=== PATIENT | male | born 1970 | race Hispanic/Latino ===

== ENCOUNTER 2018-08-15 11:55 | Inpatient (IN) | payer SELFPAY ==
[~2018-08-15 11:55] MED LIST: Gadobenate Dimeglumine 529 MG/1 ML (20ML VIAL) ONE
--- NOTE | 2018-08-15 12:52 | CT ---
Head CT without contrast 08/15/2018: COMPARISON: none HISTORY: Altered mental status TECHNIQUE: Axial CT imaging at 5 mm intervals from vertex through skull base without contrast FINDINGS: There is a focal area of conspicuous hypodensity within the superior aspect of the bilatera l cerebellar hemispheres, left more conspicuous than right, measuring in the 2.0 and 1.4 cm range respectively. No midline shift or mass effect. No ventricular enlargement. No intracranial hemorrhage noted. Imaged paranasal sinuses/mastoid air cells appear well-aerated. No displaced calvarial fracture. IMPRESSION: Areas of hypodensity noted within the superior aspect of the cerebellar hemispheres, left greater than right. Findings could be on the basis of nonspecific edema which could be related to infarction or vasogenic edema. Recommend contrast enhanced brain MRI. Dr. Almanzar made aware at 12:48 PM 08/15/2018
[2018-08-15 13:06] LABS: #Lymphocytes 0.7 thou/uL (1.20-3.40); #Monocytes 0.3 thou/uL (0.11-0.59); #Neutrophils 4.1 thou/uL (1.40-6.50); %Basophils 0.5 % (0.0-1.0); %Eosinophils 0.6 % (0.0-10.0); %Lymphocytes 12.7 % (21.0-51.0); %Monocytes 6.3 % (0.0-10.0); %Neutrophils 79.9 % (42.0-75.0); Hemoglobin 10.1 g/dL (14.0-18.0); Mean Corpuscular HGB CONC 35.3 g/dL (32.0-36.0); Mean Corpuscular Hemoglobin 30.8 pg (27.0-31.0); Mean Corpuscular Volume 87.1 fL (78.0-98.0); RBC Distribution Width 14.6 % (11.5-14.5); Red Blood Cell (RBC) Count 3.29 mill/uL (4.70-6.10); White Blood Cell (WBC) Count 5.1 thou/uL (4.8-10.8)
[2018-08-15 13:20] LABS: ALT (SGPT) 57 U/L (8-55); AST (SGOT) 71 U/L (5-34); Albumin 2.4 g/dL (3.5-5.0); Alkaline Phosphatase 514 U/L (40-150); Anion Gap 10 mmol/L (10-20); Anisocytosis SLIGHT = 6-15 cells (100X) (0-5/hpf); BUN (Urea Nitrogen) 14 mg/dL (8.9-20.6); Bilirubin, Total 2.4 mg/dL (0.2-1.2); CK (CPK) 121 U/L (30-200); Calc. Creatinine Clearance 0 mL/min (70-130); Calcium 8.1 mg/dL (7.8-10.44); Carbon Dioxide 22 mmol/L (22-29); Chloride 105 mmol/L (98-107); Estimated GFR-MDRD Greater than 90; Globulin 4.1 g/dL (2.4-3.5); Glucose 251 mg/dL (70-105); MDiff Complete? YES; Mean Platelet Volume 7.6 fL (7.4-10.4); Platelet Count 43 thou/uL (130-400); Platelet Morphology Comment Appears Decreased; Polychromasia SLIGHT = 2-3 cells (100X) (0-2/hpf); Potassium 4.1 mmol/L (3.5-5.1); Protein, Total 6.5 g/dL (6.0-8.3); Sodium 133 mmol/L (136-145)
--- NOTE | 2018-08-15 15:06 | MRI ---
MRI BRAIN WITH AND WITHOUT IV CONTRAST: HISTORY: Altered mental status and headache. FINDINGS: Correlation is made with a CT brain of earlier today. No infarct, hemorrhage, mass, midline shift, or abnormal extraaxial fluid collection is seen. The ve ntricular size is normal and the basilar cisterns patent. No restricted diffusion is identified. No significant signal abnormalities are noted on the highly sensitive FLAIR images. No blood products are seen on the gradient echo sequences. No tonsillar herniation is seen. No abnormal postcontrast enhancement is noted. The visualized paranasal sinuses and mastoid air cells are well aerated. IMPRESSION: Normal exam. This study was interpreted in consultation with Dr. Eliezer Angel (neuroradiologist) who concurs. POS: [facility]
[2018-08-15 17:26] VITALS: BMI 20.7
[2018-08-15] MEDS ORDERED: Dextrose 5% in Water 1,000 ML IV PRN (17:30)
[2018-08-15] MEDS ORDERED: Dextrose 50% Abboject 50 ML SYRINGE SLOW IVP PRN (17:30)
[2018-08-15] MEDS: Sodium Chloride 0.45% 1,000 ML IV SCH (17:36)
[2018-08-15] MEDS: HumaLOG 300 UNITS/3 ML VIAL SC PRN (17:59)
--- NOTE | 2018-08-15 18:16 | HP ---
CHIEF COMPLAINT: Altered mental status. HISTORY OF PRESENT ILLNESS: Apparently, the patient was driving and pulled over and brought to the emergency room because of altered mental status and A and O x1. His mentioned something to EMS about cirrhosis and fluid on the brain. The CT and the MRI of the brain done, which both were negative, although the CT was questionable, that is why MRI was done and it was read by neuroradiologist as negative, and also his ammonia level was elevated at 80 and decision was made about admission for further management of this problem. PAST MEDICAL HISTORY: Positive for, 1. Diabetes mellitus. 2. Liver cirrhosis. 3. Gastroesophageal reflux disease. 4. Hypertension. PAST SURGICAL HISTORY: None. SOCIAL HISTORY: This is taken from the patient and from the documentation we have from the emergency room. No alcohol intake. He denied any drugs. No cigarette smoking. FAMILY HISTORY, REVIEW OF SYSTEMS, AND MEDICATION LIST: Unobtainable secondary to the patient's altered mental status. There is no any family member present in the emergency room. ALLERGIES: AGAIN, UNKNOWN. PHYSICAL EXAMINATION: VITAL SIGNS: Blood pressure is 159/98, pulse is 97, respirations 16, temperature 98.7, O2 saturation is 100% on room air. GENERAL: He does not have any pain. He is calm and quiet. HEENT: His head is atraumatic and normocephalic. Eyes, pupils are quite dilated approximately 4 mm, similar bilaterally, responding to light. Sclerae nonicteric. Oral mucosa is moist. NECK: Supple. LUNGS: Clear. HEART: S1 and S2 normal. No S3. No S4. No any murmur. ABDOMEN: Somewhat distended. Bowel sounds are present. No organomegaly. Liver is not palpable. EXTREMITIES: No clubbing, cyanosis, or edema. NEUROLOGICAL: He is alert and oriented x1. There are no any motor deficits. He moves his all four extremities. He follows my commands. SKIN: No rash or erythema. LABORATORY DATA: Labs showed white count of 5.1, hemoglobin 10.1, hematocrit 28.6, platelet count is 43,000. Sodium 133, potassium 4.1, chloride 105, CO2 of 22, BUN 14, creatinine 0.83, glucose 251, total bilirubin 2.4, AST 71, ALT 57, alkaline phosphatase 514, ammonia 80, albumin 2.4, and globulin 4.1. CT of the brain was read as possible area of hypodensity within the superior aspect of the cerebellar hemisphere, left greater than right, but MRI of the brain was done and it was read by neuroradiologist as negative. EKG showed normal sinus rhythm with ventricular rate of 96 beats per minute. Round O is normal. No ST-T wave changes. IMPRESSION: 1. Encephalopathy, most likely related to his liver cirrhosis and elevated ammonia level. 2. Liver cirrhosis per history. 3. Diabetes mellitus type 2, uncontrolled. 4. Hypertension. 5. History of gastroesophageal reflux disease. 6. Normocytic anemia. 7. Thrombocytopenia, those two most likely related to his liver cirrhosis. 8. Elevated liver enzymes with total bilirubin above 2, again related to his liver cirrhosis. PLAN: Admission for observation. Condition is fair. Activity bedrest and bathroom privileges with assistance. IV Hep-Lock. four times a day. I believe that he was not taking his medications like he was supposed to, but he cannot tell me that and there is nobody ready to answer this question. I tried to call his , but she did not respond, so we just presume that he was not on any lactulose at home or he was not taking any lactulose like he was supposed to since it took him good 10 or 15 minutes to go to the bathroom and move his bowels. We are going to get liver ultrasounds since his alkaline phosphatase is significantly elevated and there is significant cholestasis present most likely in the liver. Also, we will do DVT prophylaxis with SCDs and Lovenox. We will check ammonia level in the morning, and we will try to reach his family tomorrow to verify and get the list of medications he is taking at home. Job ID: [id number]
[2018-08-15] MEDS ORDERED: Morphine 4 MG/ML VIAL SLOW IVP PRN (18:46)
--- NOTE | 2018-08-15 21:06 | PDOC.EVN ---
Event Note - Event Note Event Note: Called to evaluate patient for " lock-jaw". His mouth is locked open. He notes pain in his jaw. He is able to control his secretions. He is not rigid, nor in tetany. I suspect he may have a dislocation at his TMJ. I was not able to reduce his jaw- Will defer to ENT/ Oral Maxillary Surgery in the AM - will try IV Valium, as a muscle relaxer, and Decadron. Mouth care overnight .
[2018-08-15] MEDS ORDERED: Lorazepam 2 MG/ML VIAL SLOW IVP SCH (21:15)
[2018-08-15] MEDS ORDERED: Lorazepam 2 MG/ML VIAL SLOW IVP PRN (23:04)
[2018-08-16] MEDS: Sodium Chloride 0.45% 1,000 ML IV SCH ×3 (03:05→23:40)
[2018-08-16] MEDS: HumaLOG 300 UNITS/3 ML VIAL SC PRN ×4 (06:03→21:20)
[2018-08-16 06:13] LABS: #Lymphocytes 0.7 thou/uL (1.20-3.40); #Monocytes 0.6 thou/uL (0.11-0.59); #Neutrophils 7.9 thou/uL (1.40-6.50); %Basophils 0.4 % (0.0-1.0); %Eosinophils 0.2 % (0.0-10.0); %Lymphocytes 7.5 % (21.0-51.0); %Monocytes 6.3 % (0.0-10.0); %Neutrophils 85.6 % (42.0-75.0); Mean Corpuscular HGB CONC 34.7 g/dL (32.0-36.0); Mean Corpuscular Hemoglobin 30.5 pg (27.0-31.0); Mean Corpuscular Volume 87.9 fL (78.0-98.0); Mean Platelet Volume 7.9 fL (7.4-10.4); Platelet Count 40 thou/uL (130-400); Red Blood Cell (RBC) Count 3.27 mill/uL (4.70-6.10); White Blood Cell (WBC) Count 9.3 thou/uL (4.8-10.8)
[2018-08-16 06:38] LABS: ALT (SGPT) 64 U/L (8-55); AST (SGOT) 88 U/L (5-34); Albumin 2.3 g/dL (3.5-5.0); Alkaline Phosphatase 388 U/L (40-150); Anion Gap 9 mmol/L (10-20); BUN (Urea Nitrogen) 17 mg/dL (8.9-20.6); Bilirubin, Total 4.7 mg/dL (0.2-1.2); Calc. Creatinine Clearance 95 mL/min (70-130); Calcium 7.8 mg/dL (7.8-10.44); Carbon Dioxide 20 mmol/L (22-29); Chloride 106 mmol/L (98-107); Estimated GFR-MDRD Greater than 90; Globulin 4.1 g/dL (2.4-3.5); Glucose 253 mg/dL (70-105); Potassium 3.9 mmol/L (3.5-5.1); Protein, Total 6.4 g/dL (6.0-8.3); Sodium 131 mmol/L (136-145)
--- NOTE | 2018-08-16 07:42 | ULT ---
COMPLETE ABDOMEN ULTRASOUND: INDICATIONS: Concern for cholestasis. COMPARISON: None. FINDINGS: There is a coarse echotexture to the liver. The liver is small, measuring 12.7 cm. The spleen is en larged, measuring 22 cm. Mild free fluid is seen within the upper abdomen. The gallbladder is contr acted with a small, shadowing stone near the gallbladder neck. The gallbladder wall is normal, measu ring 3 mm. No sonographic Keene sign can be reported, as the patient was not fully awake. The comm on bile duct is obscured by overlying bowel gas, as is the pancreas. The right kidney measures 8.3 c m in length and the left measures 11.6 cm. Overlying bowel gas limits visualization of the aorta. T he proximal aorta is seen and is of normal caliber, measuring 2 cm. The visualized IVC is within nor mal limits. IMPRESSION: 1. Coarse appearance of the liver, suspicious for underlying cirrhosis, with portal hypertension. T he spleen is enlarged, measuring 22 cm. 2. Cholelithiasis without definite sonographic evidence of acute cholecystitis. 3. Limitations of the examination due to overlying bowel gas. POS: [facility]
[2018-08-16] MEDS: Enoxaparin Sodium 30 MG/0.3 ML SYRINGE SC SCH (09:52)
--- NOTE | 2018-08-16 15:03 | PRG ---
DATE OF SERVICE: 08/16/2018 SUBJECTIVE: The patient is seen and examined at the bedside. He is in very deep comatose state. Apparently, yesterday, his jaw was locked and he was given 2 mg of IV Ativan before the replacement of his jaw by ENT. OBJECTIVE: VITAL SIGNS: Blood pressure is 144/84, temperature is 100.8, pulse is 120, respiratory rate is 16, and O2 saturation is 99% on room air. He does not let me to wake him up. HEENT: His pupils responding to light. NECK: Supple. LUNGS: Clear. HEART: S1 and S2 normal. Tachycardic. No S3. No S4. ABDOMEN: Soft and nontender. Bowel sounds are present. EXTREMITIES: No clubbing, cyanosis or edema. NEUROLOGICAL: Postponed since he is in deep coma from IV Ativan used last night. LABORATORY DATA: White count of 9.3, hemoglobin of 10.0, hematocrit of 28.8, and platelet count of 40. Chemistry showed sodium of 131, potassium 3.9, chloride 106, CO2 of 20, BUN 17, and creatinine 0.84. Glycemia is ranging from 203 to 282. Total bilirubin is up to 4.7. AST 88, ALT 64, and alkaline phosphatase is 388. Ammonia is down to 59, albumin 2.3, and globulin 4.1. Microbiology, none. IMPRESSION: 1. Altered mental status, felt to be related to elevated ammonia level and liver cirrhosis. 2. Jaw thrust maneuver to position the jaw in place. The patient to prevent opening his mouth in the next 12 to 24 hours. 3. Liver cirrhosis per history. 4. Diabetes mellitus, type 2, uncontrolled. 5. Hypertension. 6. History of gastroesophageal reflux disease. 7. Normocytic anemia. 8. Thrombocytopenia secondary to liver cirrhosis. 9. Elevated liver enzymes. We are going to obtain ultrasound on his abdomen and we will get GI consult. IV fluids and we will try to localize his and find out what medications he is taking at home. For now, we will use just Accu-Cheks a.c. and at bedtime with regular mild sliding scale insulin. Job ID: [id number]
[2018-08-16] MEDS: Ibuprofen 200 MG TAB PO PRN (16:43)
[2018-08-16 18:00] LABS: Bilirubin Moderate (Negative); Blood, Urine Large (Negative); Clarity TURBID (Clear); Glucose, Urine (Dipstick) >=1000 mg/dL (Negative); Leukocyte Large (Negative); Nitrite Positive (Negative); Protein, Urine (Dipstick) 100 mg/dL (Neg-Trace); Specific Gravity, Urine 1.024 (1.002-1.036); pH, Urine 5.5 (5.0-9.0)
[2018-08-16 18:02] LABS: Bacteria/HPF 4+ HPF (None Seen); Hyaline Casts/LPF 0-3 HYALINE CAST LPF (0-3 Hyaline); Pathc Cast-AUWi Flag 0.79 (0-2.49); RBC/HPF GREATER THAN 50-TNTC HPF (0-3); Squamous Epithelial None Seen HPF (0-3)
[2018-08-16] MEDS ORDERED: Sodium Chloride 0.9% 500 ML IV SCH (22:30)
[2018-08-17] MEDS: cefTRIAXone\\ROCEPHIN 1 GM in Sodium Chloride 0.9% 100 ML IVPB SCH ×2 (00:45→22:15)
[2018-08-17] MEDS: Sodium Chloride 0.45% 1,000 ML IV SCH ×2 (00:48→09:58)
--- NOTE | 2018-08-17 01:59 | CON ---
DATE OF CONSULTATION: 08/16/2018 REASON FOR CONSULTATION: Altered mental status and lack of response to treatment for hepatic encephalopathy. HISTORY OF PRESENT ILLNESS: A 48-year-old gentleman with a history of type 2 diabetes, liver cirrhosis, GERD, who was brought to the emergency room after being found inside his car with altered mental status. On arrival, his vital signs demonstrated the BP 140/80, pulse 94, respirations 15, temperature 98.7, O2 saturation 100. He is described as oriented to person and place. There is no evidence of respiratory distress. Breath sounds were clear. Heart exam normal. Abdomen is not distended. Initial laboratory data with a white cell count 5.1, hemoglobin 10.1, MCV 87, platelets 43 with 79% neutrophils. The chemistry with a sodium of 131, creatinine 0.84, and bilirubin total 4.7. AST 88, ALT 64, alkaline phosphatase 388, albumin 2.3. Urinalysis with greater than 50 wbc's and greater than 50 rbc's. The patient had an abdomen ultrasound, which demonstrated coarse echotexture of the liver which is small. His spleen was enlarged. Gallbladder contracted. There is limitations in the exam because of overlying bowel gas. The patient had a brain CT, which showed areas of hypodensity in his superior aspect of the cerebellar hemispheres and MRI of the brain demonstrated normal ventricular size and patent basilar cisterns and pretty much normal exam. The patient was given lactulose, Lovenox. Because of lack of the expected improvement, we were asked to evaluate the patient. Also he has developed a temperature elevation which is another reason for the consultation. T-max was 101.3. Currently, Mr. Rajan is awake. He knew he was in the hospital, could not tell me which one, knew his name and did not know the year. He denied any headaches. No sore throat, odynophagia, or dysphagia. No neck pain. No back pain. No dyspnea or cough. No abdominal pain. He recognized diarrhea probably related to lactulose. No genitourinary symptoms. PAST MEDICAL HISTORY: Includes type 2 diabetes, cirrhosis of the liver of uncertain etiology, GERD, hypertension. PAST SURGICAL HISTORY: Negative. SOCIAL HISTORY: No reported intake of alcoholic beverages and never smoker. He is originally from [facility], has been in the [place] for many years. FAMILY HISTORY: Not available. ALLERGIES: NONE. CURRENT MEDICATIONS: 1. Enoxaparin. 2. Ibuprofen. 3. Insulin. 4. Lactulose. PHYSICAL EXAMINATION: VITAL SIGNS: T-max 101.3 just a few hours before this visit. BP 198/54, pulse 96, respirations 16, and O2 saturation 97%. GENERAL: Does not appear in distress. Awake. SKIN: Shows no evidence of spider angiomata. No lymphadenopathy. HEENT: Ocular movements conjugate. Pupils are equal. Conjunctivae normal. Nasal passages patent. Oral cavity with still few teeth remaining in place with quite a bit of decay and gum disease. No ear abnormalities. NECK: Supple. No jugular venous distention or carotid bruits. No thyromegaly. LUNGS: Symmetric air entry. HEART: S1, S2. Regular rate. No S3 or S4. ABDOMEN: Soft, not distended or tender. No ascites. There is diffuse tenderness in the abdominal area. No organomegaly noted. No bladder distention. MUSCULOSKELETAL: No joint inflammatory activity. He is able to move extremities equally. There is evidence of asterixis in the upper extremities. Plantar response are flexor. Pulses are 2+ in dorsalis pedis. No edema. LABORATORY DATA: Laboratory data has been discussed above. White cell count is up to 9.3, hemoglobin 10, MCV 87, platelets 40,000, 85% neutrophils. Glucose is 282. Microbiology; I do not see any blood culture submitted. Urine culture has been submitted. There has been a consultation with gastroenterology, consult note still pending at this time. Orders for number of test to evaluate for causes of chronic liver disease including alpha-1 antitrypsin, autoimmune panel, ceruloplasmin and ferritin, hepatitis serology, mitochondrial antibodies pending at this time. I do not see a chest x-ray, panel tests submitted since admission. ASSESSMENT: 1. Type 2 diabetes mellitus. 2. Chronic liver disease with cirrhosis and portal hypertension. 3. Fever. 4. Encephalopathy. DISCUSSION: Liver disease is associated with insulin resistance in muscular and adipose tissues and impaired response with islet beta-cells of the pancreas. Nonalcoholic fatty liver disease, alcoholic cirrhosis, hepatitis C as well as hemochromatosis are more frequently associated with type 2 diabetes mellitus. In this case, there has been development of encephalopathy which is directly related to the hepatocellular function, but the decompensation may be related to an alternative factor that has not yet been identified, particularly in view of the temperature elevation. Specifically, the presence of not yet identified the infection in respiratory, gastrointestinal, and urinary tract is a main concern. Primary [employer] inflammatory/infectious process appears to be less likely. There is no evidence of the bone, joint and soft tissue infectious process at this point in time. We will order a chest x-ray which has not yet been completed. We will wait on the results of the urine culture. Submit blood cultures since he may be bacteremic. Patients with chronic liver disease have a higher propensity for bacteremia from gastrointestinal tract. He does not have evidence of ascites. Therefore, SBP is unlikely. We will start broad-spectrum microbial therapy while the results of the above tests are pending. Job ID: [id number] MTDD
--- NOTE | 2018-08-17 02:19 | CON ---
DATE OF CONSULTATION: 08/16/2018 REASON FOR CONSULTATION: History of cirrhosis, encephalopathy. CONSULTING PHYSICIAN: Kennedy Garcia MD. HISTORY OF PRESENT ILLNESS: The patient is a 48-year-old male with past medical history of diabetes, GERD, hypertension, and cirrhosis, presenting with complaints of altered mental status. Per my interview with the patient today, his speech was limited and his thought processes were significantly slowed, making the discernment of any information difficult. Most of the information was obtained through chart review and speaking with hospital staff. Per chart review, the patient was evaluated by EMS after being pulled over and noted to have significant altered mental status being alert and oriented only to himself. He was subsequently brought to [facility] ER for further evaluation where he underwent imaging of the brain for any possible abnormalities, but were ultimately negative. However, there was some question about possible cirrhosis, so an ammonia level was drawn that was noted to be significantly elevated and he was ultimately admitted to the hospital for hepatic encephalopathy. At the current point in time, he states that he is "not feeling well," but cannot recall any of the medications that he had been taking as an outpatient and only was able to endorse that he had been diagnosed with cirrhosis "years ago." He is currently complaining of mild chest pain characterized as a burning-type sensation in the mid substernal chest as well as diarrhea having approximately 3 liquid bowel movements earlier today, but this diarrhea has only started since this hospitalization and the administration of lactulose. He does endorse the occurrence of increased swelling in his legs in the past, although none currently. However, he denies any history of variceal bleeding, jaundice, or ascites. Currently, he denies any nausea, vomiting, fevers, chills, hematemesis , melena, hematochezia, or overt abdominal pain. REVIEW OF SYSTEMS: A 10-category review of systems could not be obtained due to the patient's altered mental status. PAST MEDICAL HISTORY: As per HPI. PAST SURGICAL HISTORY: None. FAMILY HISTORY: Could not be obtained due to alteration in the patient's mental status. SOCIAL HISTORY: Unknown. OUTPATIENT MEDICATIONS: Unknown. ALLERGIES: UNKNOWN. PHYSICAL EXAMINATION: VITAL SIGNS: Temperature 101.3, pulse 119, blood pressure 138/69, respiratory rate 18, saturating 99% on room air. GENERAL: The patient was lying in bed, in no acute distress. Alert and oriented x2. HEENT: Normocephalic, atraumatic. NECK: Supple. No JVD noted. Mild scleral icterus noted bilaterally. CARDIOVASCULAR: Tachycardic rate, but regular rhythm. No discernible murmurs, gallops, or rubs. RESPIRATORY: The patient had poor inspiratory effort during examination, but was clear to auscultation bilaterally. ABDOMEN: Normoactive bowel sounds. Soft. Mild abdominal distention. No tenderness to palpation in all abdominal quadrants. EXTREMITIES: No cyanosis, clubbing, or edema. LABORATORY DATA: CBC with a white blood cell count of 9.3, hemoglobin 10, hematocrit 28.8, platelets 40. Chemistry with a sodium of 131, potassium 3.9, chloride 106 CO2 of 20, BUN 17, creatinine 0.84. Glucose 253, AST 88, ALT 64, alkaline phosphatase 388, total bilirubin 4.7, ammonia 59, albumin 2.3. A MELD score calculation could not be obtained due to lack of recent INR. IMAGING DATA: Abdominal ultrasound obtained on August 15, 2018, showed coarse echotexture of the liver as well as small size of the liver itself. Splenomegaly was also noted during this examination. Cholelithiasis without evidence of cholecystitis was seen; however, the common bile duct and pancreas could not be adequately visualized due to overlying bowel gas. There was a mild amount of free fluid within the upper abdomen noted during this exam. ASSESSMENT AND PLAN: The patient is a 48-year-old male with past medical history of diabetes, gastroesophageal reflux disease, hypertension, and cirrhosis without any evidence of complicating sequelae, presenting with probable hepatic encephalopathy. Cirrhosis: The patient is presenting with a stated diagnosis of cirrhosis that has been present for "years." At this time, the etiology of his cirrhosis is unknown with workup in the past unavailable for review at this time. Given this relative lack of diagnostic information, I would recommend a full liver workup for evaluation of possible sources of his cirrhosis to help determine if there is any other underlying illness that may be contributing to his current clinical status. Recommendations; 1. We would recommend full liver workup with serologies for viral hepatitis, Trevor disease, alpha-1 antitrypsin deficiency, autoimmune hepatitis, primary biliary cholangitis, hemochromatosis. 2. We would obtain an INR in addition to trending his labs at this time for more accurate determination of current liver function and calculation of MELD score. 3. We will need a repeat right upper quadrant ultrasound in approximately 6 months for further screening for HCC (not present on this most recent ultrasound). 4. We would consider additional imaging of the abdomen given his mildly distended abdomen and fever on admission concerning for possible SBP. Hepatic encephalopathy: The patient is presenting with a recent history of altered mental status, where he was noted by EMS prior to admission to be alert and oriented x1. On admission here in the ER, he was noted to have cirrhotic morphology on imaging as well as an elevated ammonia level consistent with hepatic encephalopathy. He is currently receiving lactulose 4 times daily and has responded well to this particular regimen, having approximately 3 diarrheal bowel movements earlier today. However, he also exhibits increased fever as well as tachycardia concerning for an infectious process, which could further contribute to hepatic encephalopathy. Recommendations; 1. We would obtain additional imaging of the abdomen to look for possible increased ascites, which could then lend itself toward SBP as contributing to his current hepatic encephalopathy. 2. Agree with consultation of Infectious Disease specialist for possible infectious etiology. 3. We would continue lactulose 30 mL q.i.d. until mental status is cleared. 4. We would avoid any potentially mind-altering medications including benzodiazepines as this could further worsen his encephalopathy. We will continue to follow. Please call with any questions. Job ID: [id number] [facility]
[2018-08-17 03:46] LABS: INR-International Normal Ratio 1.4
[2018-08-17 03:48] LABS: #Lymphocytes 0.7 thou/uL (1.20-3.40); #Monocytes 0.6 thou/uL (0.11-0.59); #Neutrophils 5.3 thou/uL (1.40-6.50); %Basophils 0.1 % (0.0-1.0); %Eosinophils 0.6 % (0.0-10.0); %Lymphocytes 10.9 % (21.0-51.0); %Monocytes 8.8 % (0.0-10.0); %Neutrophils 79.6 % (42.0-75.0); Hemoglobin 9.4 g/dL (14.0-18.0); Mean Corpuscular HGB CONC 35.3 g/dL (32.0-36.0); Mean Corpuscular Hemoglobin 31.7 pg (27.0-31.0); Mean Corpuscular Volume 89.8 fL (78.0-98.0); Mean Platelet Volume 7.6 fL (7.4-10.4); Platelet Count 34 thou/uL (130-400); RBC Distribution Width 14.7 % (11.5-14.5); Red Blood Cell (RBC) Count 2.98 mill/uL (4.70-6.10); White Blood Cell (WBC) Count 6.7 thou/uL (4.8-10.8)
[2018-08-17 04:03] LABS: ALT (SGPT) 51 U/L (8-55); AST (SGOT) 64 U/L (5-34); Alkaline Phosphatase 310 U/L (40-150); Anion Gap 9 mmol/L (10-20); BUN (Urea Nitrogen) 23 mg/dL (8.9-20.6); Bilirubin, Total 3.5 mg/dL (0.2-1.2); Calc. Creatinine Clearance 83 mL/min (70-130); Calcium 7.5 mg/dL (7.8-10.44); Carbon Dioxide 19 mmol/L (22-29); Chloride 111 mmol/L (98-107); Estimated GFR-MDRD 84; Globulin 3.8 g/dL (2.4-3.5); Glucose 244 mg/dL (70-105); Iron 32 ug/dL (65-175); Iron Binding Capacity, Total 238 mcg/dL (261-462); Potassium 3.4 mmol/L (3.5-5.1); Protein, Total 5.8 g/dL (6.0-8.3); Sodium 136 mmol/L (136-145)
[2018-08-17 04:20] LABS: Ferritin 133.79 ng/mL (22-322)
[2018-08-17 04:36] LABS: HBCM Index 0.06 S/CO (0-0.79); HBSAB Concentration 0.29 mIU/mL; HBSAg Index 0.34 S/CO (0-0.99); Hep A IgM AB NonReactive (NonReactive); Hep B Surf AB NonReactive (NonReactive); Hep B Surf Ag NonReactive S/CO (NonReactive); Hep C IgG Ab NonReactive (NonReactive); Hepatitis B Core IgM Abs NonReactive (NonReactive)
--- NOTE | 2018-08-17 07:31 | RAD ---
2 views chest. HISTORY: Fever. PA and lateral views of the chest obtained. Mild cardiomegaly seen. Pulmonary vascular congestion seen. Some prominent interstitial markings seen compatible with interstitial edema or fibrotic changes. No evidence of effusions or pneumonia seen. IMPRESSION: Cardiomegaly and pulmonary vascular congestion.
[2018-08-17] MEDS ORDERED: Non-Formulary Item 1 EACH (Insulin Detemir [Levemir Flextouch] 35 UNIT) SQ SCH (09:00)
[2018-08-17] MEDS ORDERED: Insulin Glargine 35 UNITS in Pre-Filled Syringe 1 EACH SC SCH (09:00)
[2018-08-17] MEDS: Enoxaparin Sodium 30 MG/0.3 ML SYRINGE SC SCH (09:52)
[2018-08-17] MEDS: HumaLOG 300 UNITS/3 ML VIAL SC PRN ×3 (13:01→20:33)
[2018-08-17] MEDS ORDERED: Potassium Chloride 20 MEQ TAB PO SCH (14:00)
--- NOTE | 2018-08-17 14:09 | PRG ---
DATE OF SERVICE: 08/17/2018 SUBJECTIVE: The patient is seen and examined at the bedside. They are at least four different family members in the room during my visit, but he is improved tremendously since yesterday. He is able to talk to me and even he speaks some Czech today. He is able to eat his meals without any problems. His confusion is completely gone. OBJECTIVE: VITAL SIGNS: Blood pressure is 124/74, O2 saturation is 100, respiratory rate is 16, pulse is 102, temperature maximal was 101.3. HEENT: His head is atraumatic and normocephalic. Eyes are PERRLA. Sclerae are mildly icteric. Oral mucosa is moist. NECK: Supple. LUNGS: Breath sounds diminished at both bases. HEART: S1 and S2 normal. No S3. No S4. ABDOMEN: Soft. Mildly distended. No organomegaly. Bowel sounds are present. EXTREMITIES: No clubbing, cyanosis, or edema. NEUROLOGIC: He follows my commands. He moves his all four extremities. He knows where he is. He is alert and oriented x3. There are no any motor deficits. LABORATORY DATA: Labs showed white count of 6.7, hemoglobin 9.4, hematocrit 26.8, platelet count is 34,000. INR is 1.4, PT of 17.0. Sodium of 136, potassium 3.4, chloride 111, CO2 of 19, BUN 23, creatinine 0.96. Glycemia is ranging from 247 to 294, calcium 7.5, iron 32, total iron binding capacity . AST 64, ALT 51, alkaline phosphatase 310, serum total 5.8, albumin 2.0, globulin 3.8. Urinalysis showed; color, orange and protein 100, glucose more than 1000, trace of ketones, large amount of blood, nitrites positive, moderate amount of bilirubin, large amount of leukocyte esterases. Urine rbc's greater than 50 to TNTC, urine wbc's greater than 50 to TNTC, 4+ bacteria. IgG 2019, IgA 594, IgM 148. Hepatitis panel is negative. IMPRESSION AND PLAN: 1. Altered mental status improved. 2. Fever. This is most likely related to urinary tract infection. The patient was seen by ID yesterday and Dr. Iniguez started him on ceftriaxone. 3. Liver cirrhosis per history. GI recommends full workup since we do not have any information about his and diagnostic workup in the past. 4. Diabetes mellitus type 2, uncontrolled. We will increase his insulin Lantus to 45 units every morning. 5. Urinary tract infection. Cultures came back negative so far. 6. 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 No more problems so far. 7. Anemia of chronic disease. 8. History of gastroesophageal reflux disease. 9. Hypertension. 10. Thrombocytopenia secondary to liver cirrhosis. 11. Elevated liver enzymes. Some evidence of cholelithiasis without definite sonographic evidence of acute cholecystitis on ultrasound and some coarse-appearing liver suspicious for underlying cirrhosis with portal hypertension. 12. Splenomegaly. As mentioned above, we will continue his IV Rocephin. We will continue his diagnostic workup. If he does not have much fever tomorrow and his mental condition is improved 100% ready today, but he can be most likely discharged home tomorrow with a followup with a receiver/laborer and further workup on his condition. His potassium today is slightly low. We are going to supplement this with 40 mEq of potassium. Also, as I mentioned above, I am going to increase his insulin Lantus dose to 45 units once a day. level is slightly low, but most likely it is because his albumin is low at 2.0. Job ID: [id number]
--- NOTE | 2018-08-17 17:34 | PRG ---
DATE OF SERVICE: 08/17/2018 REASON FOR CONSULTATION: History of cirrhosis, encephalopathy. SUBJECTIVE: The patient's mental status is much improved today when compared to yesterday and is more appropriate during conversation. Currently, alert and oriented x4 with no delay in thought processing. Currently, he denies any nausea, vomiting, fevers, chills, abdominal pain, ascites, lower extremity edema, or GI bleeding. LABORATORY DATA: CBC with a white blood cell count of 6.7, hemoglobin 9.4, hematocrit 26.8, platelets 34. INR 1.4. Chemistry with a sodium of 136, potassium 3.4, chloride 111, CO2 of 19, BUN 23, creatinine 0.96, glucose 244. AST 64, ALT 51, alkaline phosphatase 310, total bilirubin 3.5. IMAGING DATA: No current GI imaging is available for review. ASSESSMENT AND PLAN: The patient is a 48-year-old male with past medical history of diabetes, gastroesophageal reflux disease, hypertension, and cirrhosis without any evidence of complicated sequelae, presenting with probable hepatic encephalopathy. Cirrhosis: The patient is presenting with a prior diagnosis of cirrhosis for which the patient had been followed by a GI/liver specialist in [place], [place]. However, there were no records available for review to establish the etiology of cirrhosis with a full liver workup pending at this time. Currently with evidence of decompensated disease as evidenced by the presence of hepatic encephalopathy with current MELD score of 17 and Child-Sarabia classification C. Recommendations; 1. We will follow up on the full liver workup for etiology of his cirrhosis. 2. Given his elevated MELD score, would be considered a possible candidate for liver transplant evaluation. 3. Would have the patient follow up with his outpatient liver doctor once discharged from the hospital for further management of his cirrhosis and long-term sequelae. Hepatic encephalopathy: The patient is presenting with a recent history of altered mental status where he was noted by EMS prior to admission to be alert and oriented x1. During this admission, he was noted to have an elevated ammonia and slow thought process consistent with hepatic encephalopathy. However, during the course of this hospitalization, he was given mind-altering medications including lorazepam 2 mg x1, which resulted in his altered mental status seen yesterday. He was also noted to have urinalysis consistent with urinary tract infection, which could also contribute to elevated LFTs and/or worsening hepatic encephalopathy in light of a cirrhotic patient and now that he is currently being treated adequately for urinary tract infection and is having approximately 6 to 7 liquid bowel movements per day. His encephalopathy is much better. Recommendations; 1. Would decrease lactulose to 30 mL b.i.d. given the increased frequency of diarrhea. 2. Would continue to avoid any potentially mind-altering medications including benzodiazepine during this admission. 3. Continue with current treatment for urinary tract infection. We will continue to follow peripherally at this point given the significant improvement in his clinical status. I would advise the patient to either follow up with his primary GI physician or can be scheduled in our clinic within the next 2 to 3 weeks. Please call with any additional questions. Job ID: [id number] MTDD
[2018-08-17] MEDS: Ibuprofen 200 MG TAB PO PRN (22:12)
[2018-08-18] MEDS ORDERED: traMADol HCl 50 MG TAB PO PRN (01:06)
[2018-08-18] MEDS ORDERED: Cyclobenzaprine 10 MG TAB PO SCH (02:15)
[2018-08-18 02:40] LABS: #Basophils 0.1 thou/uL (0.0-0.2); #Eosinphils 0.1 thou/uL (0.0-0.7); #Lymphocytes 0.7 thou/uL (1.20-3.40); #Monocytes 0.4 thou/uL (0.11-0.59); #Neutrophils 4.2 thou/uL (1.40-6.50); %Eosinophils 1.6 % (0.0-10.0); %Lymphocytes 13.4 % (21.0-51.0); Hemoglobin 9.1 g/dL (14.0-18.0); Mean Corpuscular HGB CONC 34.1 g/dL (32.0-36.0); Mean Corpuscular Hemoglobin 30.7 pg (27.0-31.0); Mean Corpuscular Volume 89.9 fL (78.0-98.0); Mean Platelet Volume 7.8 fL (7.4-10.4); Platelet Count 40 thou/uL (130-400); RBC Distribution Width 14.5 % (11.5-14.5); Red Blood Cell (RBC) Count 2.95 mill/uL (4.70-6.10); White Blood Cell (WBC) Count 5.5 thou/uL (4.8-10.8)
[2018-08-18 02:53] LABS: Lactic Acid 1.3 mmol/L (0.5-2.2)
[2018-08-18 02:59] LABS: AST (SGOT) 61 U/L (5-34); Albumin 2.1 g/dL (3.5-5.0); Alkaline Phosphatase 355 U/L (40-150); Anion Gap 12 mmol/L (10-20); BUN (Urea Nitrogen) 18 mg/dL (8.9-20.6); Bilirubin, Total 2.3 mg/dL (0.2-1.2); CK (CPK) 108 U/L (30-200); Calc. Creatinine Clearance 89 mL/min (70-130); Calcium 7.8 mg/dL (7.8-10.44); Carbon Dioxide 16 mmol/L (22-29); Chloride 110 mmol/L (98-107); Estimated GFR-MDRD Greater than 90; Glucose 377 mg/dL (70-105); Potassium 4.5 mmol/L (3.5-5.1); Protein, Total 6.1 g/dL (6.0-8.3); Sodium 133 mmol/L (136-145)
[2018-08-18 03:00] LABS: ALT (SGPT) 48 U/L (8-55); Lipase 68 U/L (8-78)
[2018-08-18] MEDS: HumaLOG 300 UNITS/3 ML VIAL SC PRN ×3 (04:03→17:32)
--- NOTE | 2018-08-18 08:14 | RAD ---
AP view chest. HISTORY: Severe epigastric pain. AP view chest obtained on 08/18/2018. Cardiomegaly seen. The lungs are well aerated. No evidence of active intrathoracic disease seen. No e vidence of effusions, pneumonia or pneumothorax seen. IMPRESSION: Cardiomegaly.
[2018-08-18] MEDS: Insulin Glargine 45 UNITS in Pre-Filled Syringe 1 EACH SC SCH (08:22)
[2018-08-18] MEDS: Enoxaparin Sodium 30 MG/0.3 ML SYRINGE SC SCH (08:23)
[2018-08-18] MEDS: Lidocaine 5% Patch TD SCH (08:26)
--- NOTE | 2018-08-18 08:43 | ULT ---
ULTRASOUND ABDOMEN COMPLETE: COMPARISON: 08/16/2018. HISTORY: Epigastric pain and elevated liver function enzymes. TECHNIQUE: Balbuena-scale ultrasound evaluation of the liver, gallbladder, spleen, pancreas, common bile duct, kidne ys, abdominal aorta, and inferior vena cava (IVC). FINDINGS: Portions of the liver are obscured from view by bowel content. No focal hepatic lesion is identified . There is increased echogenicity within the gallbladder lumen with gallbladder wall thickening near ing 4 mm in thickness. There is pericholecystic fluid as well as abdominal ascites. The common duct is 5-6 mm, borderline in size. No acute renal pathology is evident. Keene's sign is reported as n egative by misdraw hand. The spleen is documented at 20 cm in length, which is enlarged. The imaged abdominal aorta is nonaneurysmal. Portions are obscured from view by bowel content limiting assessme nt. IMPRESSION: 1. Increased echogenicity of the gallbladder lumen with associated wall thickening and pericholecyst ic fluid. Findings may relate to sludge and/or cholelithiasis. Recommend clinical correlation to ex clude evidence of cholecystitis. 2. Abdominal ascites. 3. Borderline-sized common duct. Correlate with biliary laboratory values. 4. Coarsened echotexture of the liver as was previously mentioned is grossly stable. POS: [facility]STIDES
[2018-08-18] MEDS ORDERED: Insulin Glargine 10 UNITS in Pre-Filled Syringe 1 EACH SC SCH (09:00)
--- NOTE | 2018-08-18 11:56 | RAD ---
3 views lumbar spine. HISTORY: Back pain AP, lateral and coned-down views lumbar spine obtained. Images demonstrate 5 nonrib-bearing lumbar vertebra. Small anterior osteophytes seen anterior to the L3, L4 and L5 levels. No evidence of acute lumbar spi ne fracture seen. IMPRESSION: normal 3 views lumbar spine with minimal changes of spondylosis seen.
--- NOTE | 2018-08-18 13:48 | PRG ---
DATE OF SERVICE: 08/18/2018 SUBJECTIVE: The patient is seen and examined at the bedside. He is feeling better, but he had quite bad night and had some pain in his back, which affected his sleep, so he did not get enough rest last night, but the pain is gone this morning. His appetite is fair. OBJECTIVE: VITAL SIGNS: Blood pressure is 97/58, pulse is 81, temperature is 98, respiratory rate is 16, and O2 saturation is 98% on room air. HEENT: His head is atraumatic and normocephalic. Eyes are PERRLA. Sclerae are mildly icteric. Conjunctivae pinkish. Oral mucosa is moist. NECK: Supple. LUNGS: Clear. HEART: S1 and S2 normal. No S3. No S4. ABDOMEN: Soft, nontender. Bowel sounds are present. No organomegaly. EXTREMITIES: No clubbing, cyanosis, or edema. NEUROLOGIC: He follows my commands. He moves his all four extremities. There is no any motor deficits. SKIN: No rash or erythema. LABORATORY DATA: Labs showed white count of 5.5, hemoglobin 9.1, hematocrit 26.5, platelet count is 40,000. Sodium of 133, potassium 4.5, chloride 110, CO2 of 16, BUN 18, creatinine 0.90. Glycemia is ranging from 262 to 398. Total bilirubin 2.3, AST 61, ALT 48, alkaline phosphatase 355. Albumin 2.1, globulin 4.0. X-ray did not show any acute abnormalities. Abdominal ultrasound showed increased echogenicity of the gallbladder lumen with associated wall thickening and pericholecystic fluid. Some abdominal ascites. Incised common duct. Recent echotexture of the liver as was previously mentioned was grossly stable. IMPRESSION: 1. Altered mental status, improved. 2. Fever, most likely related to his urinary tract infection. 3. Urinary tract infection. 4. Lower back pain, unclear etiology. We will get lumbar spine x-ray. 5. Liver cirrhosis per history. Full workup in progress. 6. Diabetes mellitus type 2, uncontrolled. This is most likely because the patient did not tell us that he is on 35 units of insulin twice a day, not once a day, as it was thought previously. 7. Jaw lock reposition by oral surgeon during this hospitalization. 8. Anemia of chronic disease. 9. History of gastroesophageal reflux disease. 10. Hypertension. 11. Thrombocytopenia secondary to liver cirrhosis. 12. Elevated liver enzymes and splenomegaly, again related to his liver cirrhosis. PLAN: Plan is to increase the dose on his insulin to 55 units this morning and 45 units in the evening. This should get him back to his baseline, which is 150s to 170s in the morning and 200s in the evening according to him. We will obtain x-ray of his lumbar spine to rule out any fracture, although he denies any falls or he stated that he did some heavy lifting recently, but there was no any trauma to his back. Mental status is improved and he is alert and oriented x3 and able to go home in the next 24 hours. Job ID: [id number]
--- NOTE | 2018-08-18 15:03 | PRG ---
DATE OF SERVICE: 08/18/2018 SUBJECTIVE: Mr. Satinder Amanda is feeling much better. He is eating well. Denies vomiting. No chest pain. No abdominal pain or diarrhea. No genitourinary symptoms. OBJECTIVE: VITAL SIGNS: Normal temperature, the last temperature elevation was 2 days ago. His other vital signs are normal. GENERAL: Awake, alert, oriented, follows commands. No asterixis. LUNGS: Clear. ABDOMEN: Soft, not distended. EXTREMITIES: No edema. LABORATORY DATA: White cell count 5.5, hemoglobin 9.1, and platelets 40,000. Sodium 133, creatinine 0.9, bilirubin 2.3, AST 61, ALT 48, alkaline phosphatase 355, and albumin 2.1. Urinalysis was abnormal as noted. Hepatitis serology nonreactive. Microbiology with E coli, retrieved from urine culture, which is susceptible to quinolones. Blood culture, no growth. ASSESSMENT AND DISCUSSION: 1. Type 2 diabetes. 2. Chronic liver disease with cirrhosis, probably from steatohepatitis. 3. Fever. 4. Encephalopathy. The workup for chronic liver disease still yet to be completed. The patient has urinary tract infection and abnormal urinalysis and merits treatment. We will transition the patient to oral quinolone with that in mind for about 7 to 10 days. He may need prophylaxis down the road, but I do not think he meets criteria for prophylaxis at this point in time since he does not have ascites or previous GI bleed. Job ID: [id number]
[2018-08-18] MEDS: Lidocaine Patch Removal 1 EACH TOP SCH ×2 (20:24→20:28)
[2018-08-18] MEDS ORDERED: Insulin Glargine 45 UNITS in Pre-Filled Syringe 1 EACH SC SCH (21:00)
[2018-08-19] MEDS: Insulin Glargine 45 UNITS in Pre-Filled Syringe 1 EACH SC SCH (09:12)
[2018-08-19] MEDS: Enoxaparin Sodium 30 MG/0.3 ML SYRINGE SC SCH (09:39)
[2018-08-19] MEDS: Lidocaine 5% Patch TD SCH (09:42)
[2018-08-19 15:28] VITALS: BP 120/71; TEMP 98.4
--- NOTE | 2018-08-19 15:47 | CON ---
DATE OF CONSULTATION: 08/15/2018 REASON FOR CONSULTATION: Dislocation of the TMJ and acute pain. TIME: 10:30 in the evening. CHIEF COMPLAINT: Jaw pain. HISTORY OF PRESENT ILLNESS: A 48-year-old male with past medical history of diabetes, GERD, hypertension, cirrhosis of the liver, presented earlier today with altered mental status. The patient was admitted to the floor from the ER at [place] and around 7 o'clock in the evening, started having acute pain and inability to close his mouth. They were tried to give him pain medicines and Ativan with no resolution of his symptoms, so I was consulted. REVIEW OF SYSTEMS: Unable to obtain due to altered mental status. PAST MEDICAL HISTORY: As noted in HPI. PAST SURGICAL HISTORY: None. FAMILY HISTORY: Could not be obtained. SOCIAL HISTORY: Unknown. OUTPATIENT MEDICATIONS: Unknown. ALLERGIES: UNKNOWN. PHYSICAL EXAMINATION: VITAL SIGNS: His pulse was 120, temperature 100, blood pressure 138/68, respiratory rate is 18, saturating 99% on room air. GENERAL: He was lying in bed. He did appear to be in acute distress, was screaming and moaning loudly. He was not alert and oriented at all. HEENT: His eyes were closed. He had no external signs of facial trauma. He was not open lock bilaterally and unable to close his jaw. Otherwise, physical exam of the head and neck was unremarkable. ASSESSMENT: This is a 48-year-old male, presenting with altered mental status and anterior dislocation of the temporomandibular joint with open lock. Job ID: [id number]
--- NOTE | 2018-08-19 15:48 | OP ---
DATE OF PROCEDURE: 08/15/2018 PREOPERATIVE DIAGNOSIS: Anterior dislocation of the temporomandibular joint bilaterally without reduction, otherwise known as open lock. POSTOPERATIVE DIAGNOSIS: Anterior dislocation of bilateral temporomandibular joint or open lock. COMPLICATIONS: None. SPECIMENS: None. DRAINS: None. ANESTHESIA: At bedside. No anesthesia needed. DISPOSITION: The patient was stable upon me leaving the room. DESCRIPTION OF PROCEDURE: We came into the room, the patient was found at open lock, was reduced with manual posterior and field pressure and reduced bilateral TMJ. Border dressing was placed, to be removed in 24 hours. The patient tolerated the procedure well. He is to be on a full liquid diet over the next 24 hours as well. Job ID: [id number]
--- NOTE | 2018-08-20 10:12 | DIS ---
DATE OF ADMISSION: 08/15/2018 DATE OF DISCHARGE: 08/19/2018 FINAL DIAGNOSES: 1. Metabolic encephalopathy, triggered by urinary tract infection on the top of his liver cirrhosis. 2. Urinary tract infection. 3. Liver cirrhosis. 4. Diabetes mellitus, type 2. 5. Jaw lock, status post reposition by oral surgeon. 6. Anemia of chronic disease. 7. History of gastroesophageal reflux disease. 8. Hypertension. 9. Thrombocytopenia and elevated liver enzymes related to his liver cirrhosis. CONSULTANTS: 1. Dr. Beto Hussein, Gastrointestinal Service. 2. Dr. Oracio Iniguez, Infectious Disease Service. HOSPITAL COURSE: The patient is a 48-year-old male, who was apparently driving and was pulled over, and brought to the emergency room because of his altered mental status. He was alert and oriented x1. emergency room getting evaluated. He had CT of the brain done, which showed some areas of hypodensity within the superior aspect of the cerebellar hemispheres, left greater than right, and followup MRI was done, which did not confirm the previous diagnosis. At the time of emergency room evaluation, his white count was 5.1, hemoglobin 10.1, hematocrit 28.6, platelet count 43,000. Sodium 133, potassium 4.1, chloride 105, CO2 of 22, BUN 14, creatinine 0.83, glucose 251, total bilirubin was 2.24, AST 71, ALT 57, alkaline phosphatase 514. Ammonia was 80, albumin 2.4, and globulin 4.1. EKG showed normal sinus rhythm with ventricular rate of 96 beats per minute, normal axis, and no ST-T wave changes. The patient got admitted to the hospital, was placed on lactulose, and his ammonia level went down to 59 the next day. In the meantime, he had an episode of jaw lock, and the oral surgeon was consulted, who replaced his jaw and the position, and the patient was given 2 mg of IV Ativan, which affected his mental condition, and he was in a very comatose state for several hours after that. Finally, he recovered and was seen by edge finisher, Dr. Hussein, who did full workup on his liver cirrhosis with viral hepatitis, Trevor's disease, Alpha-1 antitrypsin deficiency, autoimmune hepatitis, and primary biliary cholangitis, and hemochromatosis. Ultrasound of the abdomen done, which showed, 1. Increased echogenicity of the gallbladder lumen with associated wall thickening and pericholecystic fluid. 2. Abdominal ascites. 3. Borderline-sized common duct. 4. Coarsened echotexture of the liver. The patient had some fever, and his urinalysis showed a UTI, so he was placed on Rocephin. ID was consulted, and Dr. Iniguez saw the patient as a consultation. His mental status was not improved even the ammonia level was down to normal range. status improved after he was started on IV Rocephin. Urine culture came back positive for E. coli, which was pansensitive except for Bactrim, ampicillin, and gentamicin. Two blood cultures came back negative. My further workup was not necessary. His MELD score was 17, and Child-Sarabia classification C, so he might be a good candidate for liver transplant. He is going to follow up with Dr. Hussein in his office in couple of weeks to address this issue, and he might be able to get that liver transplant. His glycemia was running on the higher side. His insulin long-acting was increased to 45 units twice a day. I am recommending him to stay on 40 units twice a day, and other medications at the time of discharge, lactulose 30 mL twice a day, and levofloxacin 500 mg once a day x5. He will follow up with primary care physician. He will stay in 1 week. He will stay on diabetic diet, and activities as tolerated. Disposition is home. He is discharged in good condition. Job ID: [id number]
[2018-08-21 15:42] LABS: ANA Symphony (Qualitative) Negative (Negative); ANA Symphony (Quantitative) 0.1 Ratio (< 0.7 Negative); EliA Vaculitis New Method **** NEW METHOD ****; Mitochondrial Ab 0.6 U/mL (<4 Negative)
== END 2018-08-19 15:02 | disposition home or self-care (01) | DRG 441 ==
LOC: ERS 11:55 → EDBD 11:55 → INTOOBSV 17:15 → OBSVTOIN 17:15 → T4-B 17:15
PROVIDERS: ADMIT Internal Medicine; ATTEND Internal Medicine
PROC: 0RSDXZZ Reposition Left Temporomandibular Joint, External Approach (ICD-10-PCS; principal; 2018-08-15)
PROC: 0RSCXZZ Reposition Right Temporomandibular Joint, External Approach (ICD-10-PCS; 2018-08-15)
DX: K72.90 Hepatic failure, unspecified without coma (principal); G93.41 Metabolic encephalopathy; N39.0 Urinary tract infection, site not specified; K76.6 Portal hypertension; B19.9 Unspecified viral hepatitis without hepatic coma; R18.8 Other ascites; K74.60 Unspecified cirrhosis of liver; E11.9 Type 2 diabetes mellitus without complications; K21.9 Gastro-esophageal reflux disease without esophagitis; I10 Essential (primary) hypertension; D64.9 Anemia, unspecified; D69.6 Thrombocytopenia, unspecified; R16.1 Splenomegaly, not elsewhere classified; S03.03XA Dislocation of jaw, bilateral, initial encounter; E83.01 Wilson's disease; E88.01 Alpha-1-antitrypsin deficiency; K75.4 Autoimmune hepatitis; K74.3 Primary biliary cirrhosis; E83.119 Hemochromatosis, unspecified; Z79.4 Long term (current) use of insulin; X58.XXXA Exposure to other specified factors, initial encounter
CPT/HCPCS: 36415; 36416; 70450; 70553; 71045; 71046; 72100; 76700; 80053; 81001; 82103; 82140; 82390; 82550; 82728; 83516; 83540; 83550; 83605; 83690; 84484; 85025; 85610; 86038; 86225; 86705; 86706; 86708; 86709; 86803; 87040; 87077; 87086; 87186; 87340; 93005; 93010; 94760; A9577; J0696; J1650; J1825; J2060; J2270; J3490